=== PATIENT | female | born 1995 | race Hispanic/Latino ===

== ENCOUNTER → 2023-09-23 | Emergency (ER) | payer OTHER ==
[~2023-09-23] MED LIST: ACETAMINOPHEN 500 MG TAB ONE; DIPHENHYDRAMINE 50 MG/ML VIAL ONE; NA CHLORIDE 0.9% 1,000 ML ONE
[2023-09-23 01:04] LABS: Protime INR 1.06
[2023-09-23 01:06] LABS: Absolute Lymphocytes (CBC) 0.5 K/uL (0.7-4.9); Basophils % 0.1 % (0-1.3); Eosinophils % 0.1 % (0-4.4); Hematocrit 34.6 % (36.0-45.0); Lymphocytes % 9.6 % (15.3-44.8); MCV 87.9 fL (80-100); MPV 8.9 fL (7.6-11.3); Platelets 171 thou/uL (152-406); RBC Red Blood Cell Count 3.94 M/uL (3.86-4.86)
[2023-09-23 01:37] LABS: ALT/SGPT 16 U/L (13-56); AST/SGOT 12 U/L (15-37); Albumin 2.6 g/dL (3.4-5.0); Albumin/Globulin Ratio 0.7 (1.1-1.8); Alkaline Phosphatase 105 U/L (45-117); Anion Gap 10.8 mEq/L (5.0-15.0); BUN Blood Urea Nitrogen 7 mg/dL (7-18); Bicarbonate 19 mEq/L (21-32); Bilirubin Total 0.3 mg/dL (0.2-1.0); Globulin 3.7 g/dL (2.3-3.5); Glomerular Filtration Rate 123 ml/min (=/>90); Glucose Level 129 mg/dL (74-106); Magnesium 1.6 mg/dL (1.6-2.4); NT PRO-BNP 29 pg/mL (<125); Potassium 3.8 mEq/L (3.5-5.1); Protein, Total 6.3 g/dL (6.4-8.2); Sodium Level 138 mEq/L (136-145)
[2023-09-23 01:38] LABS: Bilirubin Direct < 0.1 mg/dL (0-0.2); Bilirubin Indirect, Calculated ND mg/dL (0.2-0.8); Troponin High Sensitivity < 3.0 pg/mL (<58.9)
[2023-09-23 02:04] LABS: Band Neutrophils 30 % (0-1)
[2023-09-23 02:05] LABS: Blood Morphology Comment NOT SEEN (NOT SEEN); Platelet Estimate ADEQ
[2023-09-23 03:11] LABS: SARS-CoV-2 Antigen Rapid Res Negative (Negative)
--- NOTE | 2023-09-23 04:46 | ER ---
Nurse's Notes [facility] Name: Awilda Morales Age: 28 yrs Sex: Female : 1995 Arrival Date: 09/23/2023 Time: 00:15 Bed 18 Private MD: TRENTON GAFFNEY Diagnosis: Dehydration; third trimester, Near syncope, Sinus Tachycardia Presentation: 09/22 00:29 Chief complaint: Patient states: Near syncopal episode today. Pt states that after cm10 giving herself her insulin she started feeling shaky. Pt denies any pain. Coronavirus screen: Client denies travel out of the [place] in the last 14 days. At this time, the client does not indicate any symptoms associated with coronavirus-19. Ebola Screen: Patient denies travel to an Ebola-affected area in the 21 days before illness onset. No symptoms or risks identified at this time. Initial Sepsis Screen: Does the patient meet any 2 criteria? HR > 90 bpm. Does the patient have a suspected source of infection? No. Patient's initial sepsis screen is negative. Risk Assessment: Do you want to hurt yourself or someone else? Patient reports no desire to harm self or others. Onset of symptoms was September 23, 2023. 00:29 Method Of Arrival: Ambulatory cm10 00:29 Acuity: EYCENIA 2 cm10 Triage Assessment: 00:31 General: Appears in no apparent distress. comfortable, Behavior is calm, cooperative. cm10 Pain: Denies pain. CHIEF BANK EXAMINER: 00:31 5, Full Term 3, 1, Living 3, Verified cm10 Historical: - Allergies: 00:31 Iodine; cm10 - Home Meds: 00:31 None [Active]; cm10 - PMHx: 00:31 Diabetes mellitus; cm10 - PSHx: 00:31 None; cm10 - Immunization history:: Adult Immunizations up to date. - Social history:: Smoking status: Patient denies any tobacco usage or history of. - Family history:: not pertinent. Screenin:08 [facility] ED Fall Risk Assessment (Adult) History of falling in the last 3 months, kd4 including since admission No falls in past 3 months (0 pts) Confusion or Disorientation No (0 pts) Intoxicated or Sedated No (0 pts) Impaired Gait No (0 pts) Mobility Assist Device Used No (0 pt) Altered Elimination No (0 pt) Score/Fall Risk Level 0 - 2 = Low Risk Oriented to surroundings, Maintained a safe environment, Educated pt \T\ family on fall prevention, incl call for assistance when getting out of bed, Assessed \T\ reinforced patient's understanding of fall precautions. Abuse screen: Denies threats or abuse. Denies injuries from another. Nutritional screening: No deficits noted. Tuberculosis screening: No symptoms or risk factors identified. Assessment: 01:08 General: Appears in no apparent distress. comfortable, Behavior is calm, cooperative. kd4 Pain: Complains of pain in KOROMA 5/10. Neuro: Level of Consciousness is awake, alert, obeys commands, Oriented to person, place, time, situation, Facial symmetry appears normal, Reports dizziness, headache frontal area, a syncopal episode. Cardiovascular: Reports lightheadedness, syncope, Denies chest pain, Patient's skin is warm and dry. Respiratory: Airway is patent. GI: No signs and/or symptoms were reported involving the gastrointestinal system. : No signs and/or symptoms were reported regarding the genitourinary system. EENT: No signs and/or symptoms were reported regarding the EENT system. EENT:. Derm: No signs and/or symptoms reported regarding the dermatologic system. Skin is intact, Skin is dry, Skin is pink, warm \T\ dry. Skin temperature is warm. Musculoskeletal: No signs and/or symptoms reported regarding the musculoskeletal system. Range of motion: intact in all extremities. 02:06 Reassessment: Patient appears in no apparent distress at this time. Patient and/or km8 family updated on plan of care and expected duration. Pain level reassessed. Patient is alert, oriented x 3, equal unlabored respirations, skin warm/dry/pink. Patient states symptoms have improved. 03:00 Reassessment: Patient appears in no apparent distress at this time. No changes from km8 previously documented assessment. Patient and/or family updated on plan of care and expected duration. Pain level reassessed. Patient is alert, oriented x 3, equal unlabored respirations, skin warm/dry/pink. 04:00 Reassessment: Patient appears in no apparent distress at this time. No changes from km8 previously documented assessment. Patient and/or family updated on plan of care and expected duration. Pain level reassessed. Patient is alert, oriented x 3, equal unlabored respirations, skin warm/dry/pink. Vital Signs: 00:29 BP 128 / 73; Pulse 128; Resp 16; Temp 99.6(O); Pulse Ox 99% on R/A; Weight 93.89 kg cm10 (R); Height 5 ft. 2 in. (R); Pain 0/10; 00:45 BP 109 / 70; Pulse 130; Resp 20; Pulse Ox 99% on R/A; km8 01:00 BP 118 / 80; Pulse 120; Resp 18; Pulse Ox 100% on R/A; km8 01:30 BP 111 / 62; Pulse 122; Resp 22; Pulse Ox 98% on R/A; km8 02:00 BP 107 / 58; Pulse 113; Resp 24; Pulse Ox 98% on R/A; km8 02:30 BP 107 / 62; Pulse 111; Resp 22; Pulse Ox 98% on R/A; km8 03:00 BP 111 / 63; Pulse 111; Resp 21; Pulse Ox 98% on R/A; km8 03:30 BP 105 / 63; Pulse 114; Resp 21; Pulse Ox 98% on R/A; km8 04:00 BP 94 / 48; Pulse 99; Resp 21; Pulse Ox 98% on R/A; km8 04:30 BP 96 / 57; Pulse 95; Resp 18; Pulse Ox 98% on R/A; km8 04:45 BP 110 / 66; Pulse 98; Resp 16; Pulse Ox 98% on R/A; km8 00:29 Body Mass Index 37.86 (93.89 kg, 157.48 cm) cm10 00:29 Pain Scale: Adult cm10 Augustine Coma Score: 01:08 Eye Response: spontaneous(4). Motor Response: obeys commands(6). Verbal Response: kd4 oriented(5). Total: 15. ED Course: 00:18 Patient arrived in ED. es 00:19 Melody Jacob PA-C is PHCP. sb4 00:19 Justin Her MD is Attending Physician. sb4 00:20 Justin Her MD is Attending Physician. sp4 00:21 TRENTON GAFFNEY is Private Physician. es 00:21 Lorena Nino, KIT is Primary Nurse. kd4 00:31 Triage completed. cm10 00:32 Arm band placed on Patient placed in an exam room, on a stretcher, on pulse oximetry. cm10 00:41 Initial lab(s) drawn, by me, sent to lab. EKG done, by ED staff, reviewed by Justin Her MD. Inserted saline lock: 20 gauge in left antecubital area, using aseptic technique. Blood collected. 01:08 Patient has correct armband on for positive identification. Placed in gown. Bed in low kd4 position. Call light in reach. Side rails up X2. Adult w/ patient. residential monitor on. Pulse ox on. NIBP on. Warm blanket given. 02:16 No provider procedures requiring assistance completed. km8 02:58 called transfer center to [place] [facility] expedition supervisor which is . vk 03:00 EKG done, by ED staff, reviewed by Justin Her MD. kd4 04:43 ADUM, TRENTON is Referral Physician. sp4 04:47 Provided Education on: d/c teaching. km8 04:54 IV discontinued. km8 Administered Medications: 00:46 Drug: NS 0.9% IV 1000 ml IV at 1 bolus Per protocol; 1000 mL bolus Route: IV; Rate: 1 km8 bolus; Site: left antecubital; 02:07 Follow up: IV Status: Completed infusion; IV Intake: 1000ml km8 00:46 Drug: Acetaminophen PO 1000 mg PO once Route: PO; km8 02:07 Follow up: Response: No adverse reaction; Pain is decreased km8 01:07 Drug: diphenhydrAMINE IVP 25 mg IVP once Route: IVP; Site: left antecubital; kd4 02:07 Follow up: Response: No adverse reaction; Pain is decreased km8 03:01 Drug: NS 0.9% IV 1000 ml IV at 1 bolus Per protocol; 1000 mL bolus Route: IV; Rate: 1 km8 bolus; Site: left antecubital; 04:47 Follow up: IV Status: Completed infusion; IV Intake: 1000ml km8 03:25 Not Given (Duplicate Order): ns 0.9% 1000 ml IV at 1 bolus Per protocol; 1000 mL bolus km8 Medication: 01:08 VIS not applicable for this client. kd4 Intake: 02:07 IV: 1000ml; Total: 1000ml. km8 04:47 IV: 1000ml; Total: 2000ml. km8 Outcome: 04:46 Discharge ordered by . sp4 04:54 Discharged to home ambulatory, with significant other, km8 04:54 Condition: good 04:54 Discharge instructions given to patient, significant other, Instructed on discharge instructions, follow up and referral plans. Demonstrated understanding of instructions, follow-up care, 04:56 Patient left the ED. km8 Signatures: Lily Rojas Sophia, PA-C PA-C sb4 Justin Her MD MD sp4 Joan Aguilar RN RN cm10 Belle Rosa RN RN km8 Trenton Ybarra Karim RN RN kd4 Corrections: (The following items were deleted from the chart) 00:31 00:31 Allergies: No Known Allergies; cm10 cm10 01:08 01:08 BP 109 / 78; Pulse 71bpm; Resp 18bpm; Pulse Ox 95% RA; km8 km8
--- NOTE | 2023-09-23 04:46 | EDPHYS ---
Physician Documentation [facility] Name: Awilda Morales Age: 28 yrs Sex: Female : 1995 Arrival Date: 09/23/2023 Time: 00:15 Bed 18 Private MD: TRENTON GAFFNEY ED Physician Justin Her HPI: 09/22 00:20 This 28 yrs old Female presents to ER via Unassigned with complaints of 29 WKS sp4 PREG, Near Syncope. 00:32 Patient is 28-year-old female -0-1-3 at 29 weeks 2 days EGA by sonogram presents sp4 with acute onset of shaking and near syncopal episode associated with difficulty breathing. Patient's MAINSPRING WINDER is Dr. Wilson. Patient is type II diabetic. She takes 10 units of lispro insulin with every meal also 30 units Lantus insulin every morning and 36 units Lantus insulin every evening. Patient has no prior history of syncopal episodes. No history of preeclampsia. She is taking daily aspirin 81 mg and also daily cephalexin 250 mg prophylactically for UTIs . MAINSPRING WINDER: 00:31 5, Full Term 3, 1, Living 3, Verified cm10 Historical: - Allergies: 00:31 Iodine; cm10 - Home Meds: 00:31 None [Active]; cm10 - PMHx: 00:31 Diabetes mellitus; cm10 - PSHx: 00:31 None; cm10 - Immunization history:: Adult Immunizations up to date. - Social history:: Smoking status: Patient denies any tobacco usage or history of. - Family history:: not pertinent. ROS: 00:32 Constitutional: Negative for fever, chills, and weight loss, positive for shaking sp4 positive tremors positive anxiety, positive near syncopal episode, positive dyspnea 00:32 All other systems are negative, Exam: 00:32 Constitutional: This is a well developed, well nourished patient who is awake, alert, sp4 patient is anxious appearing female, tachycardic on arrival Head/Face: Normocephalic, atraumatic. Eyes: Pupils equal round and reactive to light, extra-ocular motions intact. Lids and lashes normal. Conjunctiva and sclera are not injected. Cornea within normal limits. Periorbital areas with no swelling, redness, or edema. ENT: Nares patent. No nasal discharge, no septal abnormalities noted. Tympanic membranes are normal and external auditory canals are clear. Oropharynx with no redness, swelling, or masses, exudates, or evidence of obstruction, uvula midline. Mucous membranes moist. Neck: Trachea midline, no thyromegaly or masses palpated, and no cervical lymphadenopathy. Supple, full range of motion without nuchal rigidity, or vertebral point tenderness. Chest/axilla: Normal chest wall appearance and motion. Nontender with no deformity. No lesions are appreciated. Cardiovascular: Regular tachycardia, with a normal S1 and S2. No gallops, murmurs, or rubs. Normal PMI, no JVD. No pulse deficits. Respiratory: Lungs have equal breath sounds bilaterally, clear to auscultation and percussion. No rales, rhonchi or wheezes noted. No increased work of breathing, no retractions or nasal flaring. Tachypnea on exam Abdomen/GI: Soft, with normal bowel sounds. No distension or tympany. No guarding or rebound. No evidence of tenderness throughout. Back: No spinal tenderness. No costovertebral tenderness. Skin: Warm, dry with normal turgor. Normal color with no rashes, no lesions, and no evidence of cellulitis. MS/ Extremity: Pulses equal, no cyanosis. Neurovascular intact. Full, normal range of motion. Neuro: Awake and alert, GCS 15, oriented to person, place, time, and situation. Cranial nerves II-XII grossly intact. Motor strength 5/5 in all extremities. Sensory grossly intact. Psych: Awake, alert, with orientation to person, place and time. Behavior, mood, and affect are within normal limits 03:55 ECG was reviewed by the Attending Physician. EKG at 0027 sinus tachycardia at the sp4 rate of 140, no ST elevation or depression, no ectopy 03:56 Repeat EKG at 2:44 AM sinus tachycardia at a rate of 110, rightward axis, otherwise sp4 unremarkable Vital Signs: 00:29 BP 128 / 73; Pulse 128; Resp 16; Temp 99.6(O); Pulse Ox 99% on R/A; Weight 93.89 kg cm10 (R); Height 5 ft. 2 in. (R); Pain 0/10; 00:45 BP 109 / 70; Pulse 130; Resp 20; Pulse Ox 99% on R/A; km8 01:00 BP 118 / 80; Pulse 120; Resp 18; Pulse Ox 100% on R/A; km8 01:30 BP 111 / 62; Pulse 122; Resp 22; Pulse Ox 98% on R/A; km8 02:00 BP 107 / 58; Pulse 113; Resp 24; Pulse Ox 98% on R/A; km8 02:30 BP 107 / 62; Pulse 111; Resp 22; Pulse Ox 98% on R/A; km8 03:00 BP 111 / 63; Pulse 111; Resp 21; Pulse Ox 98% on R/A; km8 03:30 BP 105 / 63; Pulse 114; Resp 21; Pulse Ox 98% on R/A; km8 04:00 BP 94 / 48; Pulse 99; Resp 21; Pulse Ox 98% on R/A; km8 04:30 BP 96 / 57; Pulse 95; Resp 18; Pulse Ox 98% on R/A; km8 04:45 BP 110 / 66; Pulse 98; Resp 16; Pulse Ox 98% on R/A; km8 00:29 Body Mass Index 37.86 (93.89 kg, 157.48 cm) cm10 00:29 Pain Scale: Adult cm10 Augustine Coma Score: 01:08 Eye Response: spontaneous(4). Motor Response: obeys commands(6). Verbal Response: kd4 oriented(5). Total: 15. MDM: 00:21 Patient medically screened. sp4 02:40 ED course: EXAM DESCRIPTION: OB Limited 09/23/2023 1:55 AM CDT CLINICAL HISTORY: 28 sp4 years, Female, COMPARISON: None FINDINGS: Limited grayscale images of the pelvis were performed. There is a single living intrauterine in breech presentation with ultrasonographic gestational age by [place] mean measurement of 5.47 cm corresponding to an ultrasonographic gestational age of 28 weeks and 6 days. Mean ultrasound gestational age of 29 weeks and 0 days with an estimated date of delivery of December 09, 2023. There was normal movement heart motion was detected at of 160 beats per minute. Placenta was anterior. ZION 10.77 cm. The cervix is closed. IMPRESSION: Single living intrauterine in breech presentation at 29 weeks and 0 days. No gross abnormalities. . 03:07 Data reviewed: vital signs, nurses notes. sp4 04:42 Differential Diagnosis: cardiac arrhythmia, drug effect, emotional response, vasovagal sp4 episode. Data reviewed: lab test result(s), CBC, electrolytes, EKG, radiologic studies, ultrasound. Consideration of Admission/Observation Escalation of care including admission/observation considered. ED course: Patient heart rate has improved after IV hydration. Overall improvement from 140 bpm to 96 bpm. Patient at this time is stable for discharge home there is no hypoxemia no concern for pulmonary embolus. Presumed to have some dehydration. No signs of preeclampsia or other significant associated problem. . 04:53 ED course: After 2 L IV hydration heart rate has decreased to 99 to 96 bpm. Patient sp4 states she is feeling unwell. Possibly developing common cold or acute viral illness. There is no concern at this time for pulmonary embolus. There is no hypoxemia and heart rate is now below 100. Patient is stable for discharge home with advised to consume more fluids use Tylenol as needed for fever in case there is a fever. . 09/22 00:20 Order name: CBC with Diff 4 09/22 00:20 Order name: PT-INR 4 09/22 01:05 Order name: Protime (+INR); Complete Time: 01:32 EDMS 09/22 01:07 Order name: CBC with Automated Diff; Complete Time: 02:39 EDMS 09/22 01:38 Order name: Basic Metabolic Panel; Complete Time: 02:39 EDMS 09/22 01:38 Order name: Liver (Hepatic) Function; Complete Time: 02:39 EDMS 09/22 01:38 Order name: Troponin High Sensitivity; Complete Time: 02:39 EDMS 09/22 01:38 Order name: NT PRO-BNP; Complete Time: 02:39 EDMS 09/22 01:38 Order name: Magnesium; Complete Time: 02:39 EDMS 09/22 02:05 Order name: Manual Differential; Complete Time: 02:39 EDMS 09/22 02:30 Order name: SARS RAPID km8 09/22 02:30 Order name: Flu km8 09/22 03:12 Order name: SARS-COV-2 Antigen Rapid; Complete Time: 04:47 EDMS 09/22 03:17 Order name: Influenza Screen (A ; Complete Time: 04:47 EDMS 09/22 00:21 Order name: US OB Limited sp4 09/22 00:20 Order name: EKG; Complete Time: 17:13 sp4 09/22 02:39 Order name: EKG; Complete Time: 17:14 sp4 09/22 00:20 Order name: Cardiac monitoring; Complete Time: 00:46 sp4 09/22 00:20 Order name: EKG - Nurse/Tech; Complete Time: 00:46 sp4 09/22 00:20 Order name: IV Saline Lock; Complete Time: 00:46 sp4 09/22 00:20 Order name: Labs collected and sent; Complete Time: 00:46 sp4 09/22 00:20 Order name: O2 Per Protocol; Complete Time: 00:46 sp4 09/22 00:20 Order name: O2 Sat Monitoring; Complete Time: 00:46 4 09/22 02:39 Order name: EKG - Nurse/Tech; Complete Time: 02:58 sp4 EC:55 Rate is 140 beats/min. Rhythm is regular, Sinus tachycardia. Right axis deviation sp4 noted. RI interval is normal. QRS interval is normal. QT interval is normal. No Q waves. T waves are Normal. No ST changes noted. Clinical impression: No evidence of ischemia. Interpreted by me. Administered Medications: 00:46 Drug: NS 0.9% IV 1000 ml IV at 1 bolus Per protocol; 1000 mL bolus Route: IV; Rate: 1 km8 bolus; Site: left antecubital; 02:07 Follow up: IV Status: Completed infusion; IV Intake: 1000ml km8 00:46 Drug: Acetaminophen PO 1000 mg PO once Route: PO; km8 02:07 Follow up: Response: No adverse reaction; Pain is decreased km8 01:07 Drug: diphenhydrAMINE IVP 25 mg IVP once Route: IVP; Site: left antecubital; kd4 02:07 Follow up: Response: No adverse reaction; Pain is decreased km8 03:01 Drug: NS 0.9% IV 1000 ml IV at 1 bolus Per protocol; 1000 mL bolus Route: IV; Rate: 1 km8 bolus; Site: left antecubital; 04:47 Follow up: IV Status: Completed infusion; IV Intake: 1000ml km8 03:25 Not Given (Duplicate Order): ns 0.9% 1000 ml IV at 1 bolus Per protocol; 1000 mL bolus km8 Disposition Summary: 09/23/23 04:46 Discharge Ordered Problem: new sp4 Symptoms: have improved sp4 Condition: Stable sp4 Diagnosis - Dehydration sp4 - third trimester, Near syncope, Sinus Tachycardia sp4 Followup: sp4 - With: TRENTON GAFFNEY - When: 7 - 10 days - Reason: Recheck today's complaints Discharge Instructions: - Discharge Summary Sheet sp4 - Dehydration, Adult sp4 Forms: - Patient Portal Instructions sp4 Signatures: Dispatcher [employer] Justin Tavarez MD MD sp4 Joan Aguilar RN RN cm10 Belle Rosa RN RN km8 Lorena Nino, RN RN kd4 Corrections: (The following items were deleted from the chart) 00:31 00:31 Allergies: No Known Allergies; cm10 cm10
[2023-09-23 05:18] VITALS: BP 110/66; TEMP 99.6; O2SAT 98
--- NOTE | 2023-09-23 15:36 | RAD REPORT ---
EXAM DESCRIPTION: US - OB Limited - 09/23/2023 1:16 am CLINICAL HISTORY: 28 years, Female, COMPARISON: None. FINDINGS: Limited grayscale images of the pelvis were performed. There is a single living intrauterine in breech presentation with ultrasonographic gestatio nal age by [place] mean measurement of 5.47 cm corresponding to an ultrasonographic gestational age of 28 weeks and 6 days. Mean ultrasound gestational age of 29 weeks and 0 days with an estimated date of delivery of December 09, 2023. There was normal movement heart motion was detected at of 160 beats per minute. Placenta was anterior. ZION 10.77 cm. The cervix is closed. IMPRESSION: Single living intrauterine in breech presentation at 29 weeks and 0 days. No g ross abnormalities. Electronically signed by: Jacob Ashley MD 09/23/2023 01:58 AM CDT Due to temporary technical issues with the PACS/Fluency reporting system, reports are being signed by the in house Radiologist without review as a courtesy to ensure prompt reporting. The interpreting r adiologist is fully responsible for the content of the report.
== END ==
LOC: ER 00:15
DX: O99.283 Endocrine, nutritional and metabolic diseases complicating pregnancy, third trimester (principal); O99.891 Other specified diseases and conditions complicating pregnancy; E86.0 Dehydration; R00.0 Tachycardia, unspecified; O24.913 Unspecified diabetes mellitus in pregnancy, third trimester; Z79.4 Long term (current) use of insulin; Z3A.29 29 weeks gestation of pregnancy; Z11.52 Encounter for screening for COVID-19; Z91.048 Other nonmedicinal substance allergy status
CPT/HCPCS: 93005 ×2; 85025; 80048; 36415; 83735; 85610; 80076; 84484; 83880; 87804 ×2; 76815; 87811; J1200; J7030 ×2